=== PATIENT | female | born 1940 | race Caucasian/White ===

== ENCOUNTER 2017-10-27 15:52 | Inpatient (IN) | payer MEDICARE, MEDICAID ==
--- NOTE | 2017-10-27 16:46 | RADIOLOGY REPORT (SQ) ---
EXAM DESCRIPTION: CT HEAD WITHOUT COMPLETED DATE/TIME: 10/27/2017 4:38 pm REASON FOR STUDY: frequent falls, head injury COMPARISON: None. TECHNIQUE: Axial images acquired through the brain without intravenous contrast. Images reviewed wi th bone, brain and subdural windows. Images stored on PACS. All CT scanners at this facility use dose modulation, iterative reconstruction, and/or weight based d osing when appropriate to reduce radiation dose to as low as reasonably achievable (ALARA). [facility]: Dose Right [facility]: CareDose [facility]: Dose Right [facility]: Teradose 4D [facility]: Smart Matchpin RADIATION DOSE: CT Rad equipment meets quality standard of care and radiation dose reduction techniq ues were employed. CTDIvol: 64.6 mGy. DLP: 1034 mGy-cm.mGy. LIMITATIONS: None. FINDINGS: VENTRICLES: Prominent. CEREBRUM: No masses. No hemorrhage. No midline shift. Areas of low density in the white matter mos t likely due to chronic micro-vascular ischemic change. No evidence for acute infarction. CEREBELLUM: No masses. No hemorrhage. No alteration of density. No evidence for acute infarction. EXTRAAXIAL SPACES: Age-related involutional change. No fluid collections. No masses. ORBITS AND GLOBE: No intra- or extraconal masses. Normal contour of globe without masses. CALVARIUM: No fracture. PARANASAL SINUSES: No fluid or mucosal thickening. SOFT TISSUES: No mass or hematoma. OTHER: No other significant finding. IMPRESSION: CHRONIC CHANGES OF ATROPHY AND MICROVASCULAR ISCHEMIA. NO ACUTE PROCESS. EVIDENCE OF ACUTE STROKE: NO. TECHNICAL DOCUMENTATION: JOB ID: [id number] Quality ID # [id number]: Final reports with documentation of one or more dose reduction techniques (e.g., Au tomated exposure control, adjustment of the mA and/or kV according to patient size, use of iterative reconstruction technique) 2010 [employer]- All Rights Reserved
--- NOTE | 2017-10-27 16:51 | ER Document Report ---
ED Fall - General Chief Complaint: Blood Pressure Problem Stated Complaint: FALL,BLOOD PRESSURE ISSUES Time Seen by Provider: 10/27/17 16:02 Notes: The patient is a 76-year-old female, past medical history hypertension (not on any blood pressure medications for 15 years), presents with her son and granddaughter after they noticed she had some falls over the past 4 days. Patient said that she begins to feel slightly off balance when she is standing and will lay down. When at rest, she is not having any symptoms. Patient is also having mild left upper and lower extremity weakness. Patient has not seen a primary care physician for the past 15 years. Patient denies chest pain, shortness of breath, headache, blurry vision, focal weakness, numbness, tingling , difficulty swallowing, nausea, vomiting or abdominal pain. TRAVEL OUTSIDE OF THE [place] IN LAST 30 DAYS: No - Related data Allergies/Adverse Reactions: No Known Allergies Allergy (Unverified 10/27/17 16:58) Past Medical History - General Information source: Patient, Relative - Social History Smoking Status: Unknown if Ever Smoked Family History: Reviewed & Not Pertinent Review of Systems - Review of Systems Notes: REVIEW OF SYSTEMS: CONSTITUTIONAL: -fevers, -chills EENT: -eye pain, -difficulty swallowing, -nasal congestion CARDIOVASCULAR:-chest pain, -syncope. RESPIRATORY: -cough, -SOB GASTROINTESTINAL: -abdominal pain, - nausea, -vomiting, -diarrhea GENITOURINARY: -dysuria, -hematuria MUSCULOSKELETAL: -back pain, -neck pain SKIN: -rash or skin lesions. HEMATOLOGIC: -easy bruising or bleeding. LYMPHATIC: -swollen, enlarged glands. NEUROLOGICAL: -altered mental status or loss of consciousness, -headache, +off- balance feeling, +mild left-sided weakness PSYCHIATRIC: -anxiety, -depression. ALL OTHER SYSTEMS REVIEWED AND NEGATIVE. Physical Exam - Vital signs Vitals: Pulse Resp BP Pulse Ox 91 20 202/110 H 97 10/27/17 18:54 10/27/17 18:54 10/27/17 18:54 10/27/17 18:54 - Notes Notes: PHYSICAL EXAMINATION: GENERAL: Well-appearing, well-nourished and in no acute distress. HEAD: Atraumatic, normocephalic. EYES: Pupils equal round and reactive to light, extraocular movements intact, sclera anicteric, conjunctiva are normal. ENT: nares patent, oropharynx clear without exudates. Moist mucous membranes. NECK: Normal range of motion, supple without lymphadenopathy LUNGS: Breath sounds clear to auscultation bilaterally and equal. No wheezes rales or rhonchi. HEART: irregular rhythm ABDOMEN: Soft, nontender, normoactive bowel sounds. No guarding, no rebound. No masses appreciated. EXTREMITIES: Normal range of motion, no pitting or edema. No cyanosis. NEUROLOGICAL: Cranial nerves grossly intact. Normal speech. 4/5 strength in LUE and LLE. 5/5 strength in LUE and LLE. Normal sensation. No posterior cerebellar signs. Slow, unsteady gait. PSYCH: Normal mood, normal affect. SKIN: Warm, Dry, normal turgor, no rashes or lesions noted. Course - Re-evaluation Re-evalutation: Patient with several days of ataxia, mild left-sided weakness and frequent falls. Patient has not seen a doctor for 15 years. She was found to be hypertensive and in A. fib. She is not on any blood thinners. No history of A. fib that the patient and her family is aware of. Her NIHSS is 2 and her ABCD2 score is 4. Patient provided with aspirin. Spoke with Dr. Andersen and he has accepted patient to [facility] for further evaluation and treatment of her stroke. - Vital Signs Vital signs: Temp Pulse Resp BP Pulse Ox 91 20 202/110 H 97 10/27/17 18:54 10/27/17 18:54 10/27/17 18:54 10/27/17 18:54 - Laboratory Result Diagrams: 10/27/17 16:25 10/27/17 16:25 Laboratory results interpreted by me: 10/27/17 16:25 Sodium 147.3 H Chloride 110 H - Diagnostic Test Radiology reviewed: Image reviewed, Reports reviewed Radiology results interpreted by me: CT Head: chronic changes, NAD CXR: NAD MRI Head: 2 small foci of restricted diffusion in the white matter in the region of the right thalamus suspicious for sub-acute lacunar infarctions. EVIDENCE OF ACUTE STROKE: Yes RIGHT MCA - EKG Interpretation by Me Rate: Normal Rhythm: A.Fib Additional EKG results interpreted by me: No STEMI. Discharge - Discharge Clinical Impression: CVA (cerebral vascular accident) Qualifiers: CVA mechanism: unspecified Qualified Code(s): I63.9 - Cerebral infarction, unspecified Condition: Stable Disposition: ADMITTED INPATIENT Admitting Provider: [place] [facility] Unit Admitted: [facility]
[2017-10-27 16:53] LABS: ABSOLUTE BASOPHILS # (AUTO) 0.1 10^3/uL (0.0-0.2); ABSOLUTE EOSINOPHILS # (AUTO) 0.2 10^3/uL (0.0-0.6); ABSOLUTE LYMPHOCYTES (AUTO) 1.5 10^3/uL (0.5-4.7); ABSOLUTE MONOCYTES (AUTO) 0.6 10^3/uL (0.1-1.4); ABSOLUTE NEUT (AUTO) 6.7 10^3/uL (1.7-8.2); BASOPHILS % (AUTO) 0.8 % (0-2); HEMATOCRIT 41.6 % (36.0-47.0); HEMOGLOBIN 14.3 g/dL (12.0-15.5); LYMPHOCYTES % (AUTO) 16.1 % (13-45); MEAN CORPUSCULAR HEMOGLOBIN 31.1 pg (27.0-33.4); MEAN CORPUSCULAR HGB CONC 34.5 g/dL (32.0-36.0); MEAN CORPUSCULAR VOLUME 90 fl (80-97); MONOCYTES % (AUTO) 6.9 % (3-13); PLATELET COUNT 365 10^3/uL (150-450); RED BLOOD COUNT 4.61 10^6/uL (3.72-5.28); RED CELL DISTRIBUTION WIDTH 13.7 % (11.5-14.0); SEGMENTED NEUTROPHILS % (AUTO) 74.2 % (42-78); TOTAL CELLS COUNTED % (AUTO) 100 %
[2017-10-27 16:59] LABS: ALANINE AMINOTRANSFERASE 29 U/L (9-52); ALBUMIN 4.1 g/dL (3.5-5.0); ALKALINE PHOSPHATASE 108 U/L (38-126); ANION GAP 11 (5-19); ASPARTATE AMINO TRANSFERASE 19 U/L (14-36); BILIRUBIN,DIRECT 0.2 mg/dL (0.0-0.4); BILIRUBIN,TOTAL 0.4 mg/dL (0.2-1.3); BLOOD UREA NITROGEN 14 mg/dL (7-20); CALCIUM 9.9 mg/dL (8.4-10.2); CARBON DIOXIDE 26 mmol/L (22-30); CHLORIDE 110 mmol/L (98-107); CREATINE KINASE 35 U/L (30-135); GLUCOSE 103 mg/dL (75-110); POTASSIUM 4.2 mmol/L (3.6-5.0); SODIUM 147.3 mmol/L (137-145); TOTAL PROTEIN 6.9 g/dL (6.3-8.2)
--- NOTE | 2017-10-27 16:59 | RADIOLOGY REPORT (SQ) ---
EXAM DESCRIPTION: CHEST SINGLE VIEW COMPLETED DATE/TIME: 10/27/2017 4:45 pm REASON FOR STUDY: fall, assess for metal before MRI COMPARISON: None. EXAM PARAMETERS: NUMBER OF VIEWS: One view. TECHNIQUE: Single frontal radiographic view of the chest acquired. RADIATION DOSE: NA LIMITATIONS: None. FINDINGS: LUNGS AND PLEURA: No opacities, masses or pneumothorax. No pleural effusion. MEDIASTINUM AND HILAR STRUCTURES: No masses. Contour normal. HEART AND VASCULAR STRUCTURES: Heart normal in size. Normal vasculature. BONES: No acute findings. HARDWARE: None in the chest. OTHER: No other significant finding. IMPRESSION: NO ACUTE RADIOGRAPHIC FINDING IN THE CHEST. TECHNICAL DOCUMENTATION: JOB ID: [id number] [employer]- All Rights Reserved
--- NOTE | 2017-10-27 17:56 | RADIOLOGY REPORT (SQ) ---
EXAM DESCRIPTION: MRI HEAD WITHOUT COMPLETED DATE/TIME: 10/27/2017 5:33 pm REASON FOR STUDY: ataxia COMPARISON: Earlier head CT TECHNIQUE: Multiplanar imaging includes non-contrasted T1, T2, FLAIR, and diffusion with ADC map seq uences. Images stored on PACS. LIMITATIONS: None. FINDINGS: ANATOMY: No anomalies. Patent vascular flow voids. Pituitary fossa age-appropriate. CSF SPACES: Atrophy induced prominence of ventricles and CSF spaces. CEREBRUM: High signal intensity lesions scattered throughout the white matter on FLAIR imaging with d istribution suggesting micro-vascular ischemic changes. No evidence of hemorrhage, mass, or extraaxi al fluid collection. POSTERIOR FOSSA: No signal alteration. No hemorrhage. No edema, masses or mass effect. Internal estevan tory canals, cerebello-pontine angles, mastoids normal. DIFFUSION IMAGIN small foci of restricted diffusion in the white matter in the region of the righ t thalamus suspicious for sub-acute lacunar infarctions. ORBITS: No masses. Globes normal. PARANASAL SINUSES: No fluid levels. Small left maxillary mucous retention cyst. OTHER: No other significant finding. IMPRESSION: 2 small foci of restricted diffusion in the white matter in the region of the right thal amus suspicious for sub-acute lacunar infarctions. EVIDENCE OF ACUTE STROKE: Yes RIGHT MCA TECHNICAL DOCUMENTATION: JOB ID: [id number] [place]-72 2010 [employer]- All Rights Reserved
[2017-10-27] MEDS ORDERED: ASPIRIN 81 MG TABLET, CHEWABLE PO ONE (18:15)
--- NOTE | 2017-10-27 18:30 | ER Document Report ---
ED NIH Stroke Scale - NIH Stroke Scale When completed:: Before Alteplase *: 1. NIH scale should be completed with appropriate accompanying assessment tools. *: 2. The NIH should reflect what the patient is capable of doing and should not be coached by the clinician. 1a. Level of Consciousness: 0=Alert;keenly responsive -: 1=Drowsy -: 2=Obtunded -: 3=Coma/unresponsive or reflex to noxious stimuli. 1a. Responses: 0 1b. Orientation Questions: a. What month is it? -: b. How old are you? -: 0=Answers both questions correctly. -: 1=Answers one question correctly or patient is intubated or has orotracheal trauma. -: 2=Answers neither question correctly. 1b. Responses: 0 1c. Response to commands: a. Open and close eyes? -: b. 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 -: Credit is given despite weakness. Demonstration of task is permitted. Substitute command if hands cannot be used. -: 0=Performs both tasks correctly -: 1=Performs one task correctly -: 2=Performs neither task correctly 1c. Responses: 0 2. Gaze: Establish eye contact and instruct patient to "Follow my finger" -: 0=Normal -: 1=Partial gaze palsy. Gaze is abnormal in one or both eyes, but where forced deviation or total gaze paresis is not present. -: 2=Forced deviation or total gaze paresis. 2. Responses: 0 3. Visual Williamson: Sees fingers in all four quadrants. -: 0=No visual loss. -: 1=Partial hemianopsia. -: 2=Complete hemianopsia. -: 3=Bilateral hemianopsia (including Cortical blindness) 3. Responses: 0 4. Facial Movement: Instruct patient to: -: a. Show me your teeth -: b. Raise your eyebrows -: c. Close your eyes -: d. Smile -: 0=Normal symmetrical movement -: 1=Minor paralysis (flattened nasolabial fold, asymmetry on smiling). -: 2=Partial paralysis (total or near total paralysis of lower face). -: 3=Complete paralysis of upper and lower face 4. Responses: 0 5. Motor functions (left arm): Alternate sides and extend each arm with palms down (90 degrees if sitting or 45 degrees for supine). -: 0=No drift;limb holds for full 10 seconds. -: 1=Drift; limb holds but drifts down before full 10 seconds, but does not hit bed. -: 2=Some effort against gravity; limb cannot get to or maintain position. -: 3=No effort against gravity; limb falls. -: 4=No movement. -: UN=Amputation, joint fusion, explain in comments. 5. Responses (left arm): 1 5. Motor Functions (right arm): Alternate sides and extend each arm with palms down (90 degrees if sitting or 45 degrees for supine). -: 0=No drift;limb holds for full 10 seconds. -: 1=Drift; limb holds but drifts down before full 10 seconds, but does not hit bed. -: 2=Some effort against gravity; limb cannot get to or maintain position. -: 3=No effort against gravity; limb falls. -: 4=No movement. -: UN=Amputation, joint fusion, explain in comments. 5. Responses (right arm): 0 6. Motor Functions (left leg): With patient lying supine, alternate sides and extend each leg (30 degrees always while supine). -: 0=No drift, leg holds position for full 5 seconds -: 1=Drift; leg falls before full 5 seconds but does not hit bed. -: 2=Some effort against gravity, leg falls to bed but some effort against gravity. -: 3=No effort against gravity, leg falls to bed immediately. -: 4=No movement. -: UN=Amputation, joint fusion; explain in comments. 6. Responses (left leg): 1 6. Motor Functions (right leg): With patient lying supine, alternate sides and extend each leg (30 degrees always while supine). -: 0=No drift, leg holds position for full 5 seconds -: 1=Drift; leg falls before full 5 seconds but does not hit bed. -: 2=Some effort against gravity, leg falls to bed but some effort against gravity. -: 3=No effort against gravity, leg falls to bed immediately. -: 4=No movement. -: UN=Amputation, joint fusion; explain in comments. 6. Responses (right leg): 0 7. Limb Ataxia: With eyes open instruct patient to: -: a. "Touch your finger to your nose". -: b. "Touch your heel to your boo" -: 0=Absent -: 1=Present in one limb. -: 2=Present in two limbs. -: UN=Amputation or joint fusion; explain in comments. 7. Responses: 0 8. Sensory: Test sensation using pinprick or noxious stimuli. Test as many body parts as possible. -: 0=Normal;no sensory loss -: 1=Mile to moderate sensory loss (patient feels pin prick but is less sharp on affected side). -: 2=Severe or total sensory loss. 8. Responses: 0 9. Best Language: Instruct patient to: -: a. "Describe what you see in this picture." -: b. "Name the items in this picture." -: c. "Read these sentences." -: 0=No aphasia, normal -: 1=Mild to moderate aphasia. -: 2=Severe aphasia -: 3=Mute, global aphasia, no usable speech or auditory comprehension. 9. Responses: 0 10. Articulation, Dysarthia: Instruct patient to: -: "Read these words" or "Repeat these words" -: 0=Normal -: 1=Mild to moderate; patient may slur some words but can be understood without difficulty. -: 2=Severe; patients speech so slurred as to be unintelligible in the absence of dysphasia. -: UN=Intubated or other physical barrier, explain in comments. 10. Responses: 0 11. Extinction or inattention: 0=No abnormality -: 1= Visual, tactile, auditory, spatial, or personal inattention or extinction to bilateral simulation in one or the sensory modalities. -: 2=Profound berenice-inattention or berenice-inattention to more than one modality; does not recognize own hand. 11. Responses: 0 Total Score: 2
[2017-10-27] MEDS ORDERED: METOPROLOL TARTRATE 25 MG TABLET PO ONE ×2 (18:34→20:00)
[2017-10-27 18:39] LABS: INTERNATIONAL RATION (INR) 0.89; PARTIAL THROMBOPLASTIN TIME 30.3 SEC (23.5-35.8); PROTHROMBIN TIME 12.7 SEC (11.4-15.4)
[2017-10-27] MEDS ORDERED: ACETAMINOPHEN 325 MG TABLET PO PRN (18:49)
[2017-10-27] MEDS ORDERED: ONDANSETRON HCL INJ/PF 4 MG/2 ML SDV IV PRN (18:49)
[2017-10-27] MEDS ORDERED: DOCUSATE SODIUM 100 MG CAPSULE PO PRN (18:54)
[2017-10-27] MEDS ORDERED: METOPROLOL TARTRATE PF/INJ 5 MG/5 ML SDV IV PRN (18:57)
[2017-10-27] MEDS ORDERED: ENOXAPARIN SODIUM INJ 40 MG/0.4 ML DISP.SYRIN SUBCUT ONE (20:30)
[2017-10-27] MEDS ORDERED: INFLUENZA ADLT QUAD (36MOS+) 2017-18 VAC 0.5 ML SYR IM PRN (21:39)
[2017-10-27] MEDS: ATORVASTATIN CALCIUM 80 MG TABLET PO SCH (21:53)
[2017-10-28] MEDS: METOPROLOL TARTRATE 25 MG TABLET PO SCH ×2 (05:05→17:58)
--- NOTE | 2017-10-28 07:54 | EKG REPORT ---
SEVERITY:- ABNORMAL ECG - ATRIAL FIBRILLATION, V-RATE 71-125 PROBABLE LVH WITH SECONDARY REPOL ABNRM ST DEPRESSION, CONSIDER ISCHEMIA, ANT-LAT LDS : Confirmed by: Delonte Morin MD 28-Oct-2017 07:52:48
[2017-10-28 07:57] LABS: CHOLESTEROL 210.19 mg/dL (0-200); TRIGLYCERIDES 147 mg/dL (<150)
[2017-10-28 08:08] LABS: DIRECT LDL 121 mg/dL (<100)
[2017-10-28 08:14] LABS: FREE T4 (FREE THYROXINE) 1.46 ng/dL (0.78-2.19)
[2017-10-28 08:28] LABS: THYROID STIMULATING HORMONE 1.68 uIU/mL (0.47-4.68)
[2017-10-28] MEDS ORDERED: ENOXAPARIN SODIUM INJ 40 MG/0.4 ML DISP.SYRIN SUBCUT SCH (10:00)
[2017-10-28] MEDS ORDERED: ASPIRIN 325 MG TABLET, ENT COATED PO SCH (10:00)
--- NOTE | 2017-10-28 12:40 | PDOC H&P ---
History of Present Illness Admission Date/PCP: 10/27/17 18:50 Patient seen and examined from [id number] on 10/27/2017 Patient complains of: Dizziness and falls History of Present Illness: BLANCA GIL is a 76 year old female presents from home with a couple week history of progressive dizziness resulting in several falls over the course of the last 3 days. Patient has always refused to come in for evaluation after a fall in spite until today at the insistence of her family. She has a history of hypertension but quit going to the doctor approximately 15 years ago and took herself off all medications at that time. She reports the dizziness occurring off and on for the last couple of weeks but does seem to be getting worse over the last several days. Is not associated with any behaviors or activities and the she cannot think of any alleviating or exacerbating factors, it seems rather random sometimes occurring upon standing and other times while walking. She denies unilateral weakness, numbness or tingling, headache, vision changes, hearing changes, speech difficulties or swallowing problems, cough with congestion, stiff neck, fever or chills. She has never had anything like this before. On arrival in the emergency department she was noted to be quite hypertensive with a systolic pressure greater than 235 and diastolic pressure greater than 115 in an irregular rhythm consistent with atrial fibrillation and a heart rate from 100-116 sustained with no prior history of cardiac arrhythmia. MRI was performed and shows deep brain lesion consistent with acute ischemic event and we were asked to admit for further evaluation and management. Past Medical History Cardiac Medical History: Reports: Hyperlipidema, Hypertension Neurological Medical History: Reports: None Endocrine Medical History: Reports: None Psychiatric Medical History: Denies: Depression Past Surgical History Past Surgical History: Reports: Hysterectomy Social History Information Source: Patient Smoking Status: Former Smoker Cigarettes Packs Per Day: 1 Number of Years Smokin Last Time Smoked: 1991 Frequency of Alcohol Use: None Hx Recreational Drug Use: No Drugs: None Hx Prescription Drug Abuse: No - Advance Directive Resuscitation Status: Full Code Family History Family History: Reviewed & Not Pertinent. denies: CVA Parental Family History Reviewed: Yes Children Family History Reviewed: Yes Sibling(s) Family History Reviewed.: Yes Medication/Allergy Home Medications: No Home Medications 10/27/17 Allergies/Adverse Reactions: No Known Allergies Allergy (Unverified 10/27/17 16:58) Review of Systems All systems: reviewed and no additional remarkable complaints except as stated - All systems reviewed, see above, remaining systems negative. Physical Exam Vital Signs: Temp Pulse Resp BP Pulse Ox 98.3 F 75 20 154/78 H 94 10/28/17 08:12 10/28/17 08:12 10/28/17 08:12 10/28/17 08:12 10/28/17 08:12 Intake & Output 10/27/17 10/28/17 10/29/17 06:59 06:59 06:59 Intake Total 155 Balance 155 Weight 79.3 kg General: Well-developed, well-nourished, mildly obese elderly female in no acute distress alert and oriented to person place time. HEENT: Extraocular muscles intact, pupils equal round reactive to light and accommodation, oral mucosa moist and free of lesions, neck muscles are supple there is no adenopathy about the head and neck. Cardiac: Irregularly irregular with sustained rate greater than 100 but no obvious murmur rub or gallop; no JVD, no carotid bruit. Respiratory: Clear to auscultation bilaterally without accessory muscle use. Abdomen: Soft, nontender, nondistended with good bowel sounds throughout; no organomegaly and no abdominal bruit. Extremities: Strength is 5 out of 5 in the major muscle groups. She moves all 4 extremities and follows commands. No edema. Neuro: Cerebellar testing is intact, she is able to cross midline without difficulty taking her right index finger to her left ear and vice versa; there is no dysarthria; tongue protrusion is midline, no facial asymmetry, posterior oropharynx elevates symmetrically with phonation. Sensation intact globally. No focal weakness on confrontational testing. No nystagmus. Skin: Warm and dry. Results Laboratory Results: 10/28/17 10/28/17 07:08 07:08 Triglycerides 147 Cholesterol 210.19 H LDL Cholesterol Direct 121 H VLDL Cholesterol 29.0 HDL Cholesterol 45 Vitamin B12 259.0 TSH 1.68 Free T4 1.46 10/28/17 10/28/17 00:54 07:08 Troponin I 0.022 0.017 EKG Comments: EKG shows atrial fibrillation with nonspecific ST depression in the inferior and lateral leads likely repolarization abnormality due to rapid ventricular response Impressions: Head CT 10/27/17 16:14 IMPRESSION: CHRONIC CHANGES OF ATROPHY AND MICROVASCULAR ISCHEMIA. NO ACUTE PROCESS. EVIDENCE OF ACUTE STROKE: NO. Chest X-Ray 10/27/17 16:30 IMPRESSION: NO ACUTE RADIOGRAPHIC FINDING IN THE CHEST. Head MRI 10/27/17 17:33 IMPRESSION: 2 small foci of restricted diffusion in the white matter in the region of the right thalamus suspicious for sub-acute lacunar infarctions. EVIDENCE OF ACUTE STROKE: Yes RIGHT MCA Status: Image reviewed by me - Agree with radiology. 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 Admit the patient to a monitored bed for further evaluation including echocardiogram, serial cardiac enzymes, metabolic testing including lipids, hemoglobin A1c, electrolyte abnormalities, thyroid studies and B12. She will need carotid Doppler studies including the vertebrobasilar system. Allow permissive hypertension started on low-dose beta-bennett for rate control hoping to avoid a greater than 25% drop in systolic and diastolic pressures. MENDS through the night. Hold on anticoagulation tonight reevaluate in the morning given the deep brain lesion and unclear timeline. Symptoms started well outside the window for therapeutic thrombolytics. (2) Accelerated hypertension Is this a current diagnosis for this admission?: Yes Plan: As above. Likely result of long-standing untreated hypertension. (3) Noncompliance Is this a current diagnosis for this admission?: Yes Plan: She was counseled extensively regarding medication compliance. (4) Obesity (BMI 30.0-34.9) Is this a current diagnosis for this admission?: Yes Plan: Another additional risk factor for stroke. Counseled regarding diet and exercise and weight loss. (5) New onset atrial fibrillation Is this a current diagnosis for this admission?: Yes Plan: Rate and rhythm control with beta-bennett. Follow-up echocardiogram in the morning and serial cardiac enzymes. We will likely start anticoagulation in the morning. - Time Time Spent: 50 to 70 Minutes Medications reviewed and adjusted accordingly: Yes - Inpatient Certification Based on my medical assessment, after consideration of the patient's comorbidities, presenting symptoms, or acuity I expect that the services needed warrant INPATIENT care.: Yes I certify that my determination is in accordance with my understanding of Medicare's requirements for reasonable and necessary INPATIENT services [42 CFR 412.3e].: Yes Medical Necessity: Significant Comorbidiites Make Outpatient Treatment Too Risky , Need For Continuous Telemetry Monitoring, Need for Neurological Checks, Risk of Complication if Not Cared For in Hospital
--- NOTE | 2017-10-28 12:55 | RADIOLOGY REPORT (SQ) ---
EXAM DESCRIPTION: CAROTID DOPPLER COMPLETED DATE/TIME: 10/28/2017 11:45 am REASON FOR STUDY: EMBOLIC CVA COMPARISON: CT brain 10/27/2017 MRI brain 10/27/2017 TECHNIQUE: Grayscale ultrasound, Doppler velocity and spectra, and color Doppler images acquired of the extra-cranial carotid and vertebral arteries. Images stored on PACS. LIMITATIONS: None. FINDINGS: RIGHT CAROTID CCA Velocities: Within normal limits. ICA Velocities Peak systolic 0.94 m/s. End diastolic 0.21 m/s. Proximal ICA/CCA peak systolic ratio 2.1. Spectra normal. No significant plaque. Tortuous right cervical ICA LEFT CAROTID CCA Velocities: Within normal limits. ICA Velocities Peak systolic 0.91 m/s. End diastolic 0.23 m/s. Proximal ICA/CCA peak systolic ratio 1.3. Spectra normal. No significant plaque. Tortuous left cervical ICA VERTEBRAL ARTERIES: Antegrade flow. Normal waveforms. SUBCLAVIAN ARTERIES: Not evaluated OTHER: No other significant finding. IMPRESSION: NO HEMODYNAMICALLY SIGNIFICANT STENOSIS. COMMENT: Quality ID #[id number]: Velocity criteria are extrapolated from the diameter data as defined by t he Society of Radiologists in Ultrasound Consensus Conference. Radiology 2003: 229; 340-346. TECHNICAL DOCUMENTATION: JOB ID: [id number] [employer]- All Rights Reserved
--- NOTE | 2017-10-28 13:13 | XCELERA REPORT ---
[address] [address] Transthoracic Echocardiogram Report Name: BLANCA GIL Age: 76 yrs Gender: Female : 1940 Patient Status: Inpatient Patient Location: [address] [place] [address] Study Date: 10/28/2017 10:17 AM Height: 60 in Weight: 174 lb BSA: 1.8 m2 Procedure: A two-dimensional transthoracic echocardiogram with color flow and Doppler was performed. Study Quality: Fair. Reason For Study: CVA History: CVA. Ordering Physician: DEYSI JACKSON Performed By: Kia Woodruff Interpretation Summary There is no obvious cardiac source of embolus noted on this transthoracic echocardiogram. Follow-up with a JULIEN is suggested if cardiac source is still suspected. The left ventricle is normal in size. There is normal left ventricular wall thickness. LV EF is > than 65% Left ventricular systolic function is normal. Doppler measurements suggest normal left ventricular diastolic function The left ventricular wall motion is normal. There is no thrombus. There is no ventricular septal defect visualized. The right ventricle is normal in size and function. The right atrium is normal. The left atrial size is normal. The interatrial septum is intact with no evidence for an atrial septal defect. There is no evidence of mitral valve prolapse. There is no vegetation seen on the mitral valve. There is no mitral valve stenosis. There is a mild amount of mitral regurgitation There is no aortic valve stenosis There is no LVOT obstruction. No aortic regurgitation is present. There is no tricuspid stenosis. There is a mild amount of tricuspid regurgitation There is mild pulmonary hypertension by echo RVSP is 34 to 39 mm of Hg , with RA mean of 5 to 10. There is no pulmonic valvular stenosis. There is a mild amount of pulmonic regurgitation The inferior vena cava appeared normal and decreased > 50% with respiration (RAP 5-10 mmHg) There is no pericardial effusion. There is no obvious cardiac source of embolus noted on this transthoracic echocardiogram. Follow-up with a JULIEN is suggested if cardiac source is still suspected MMode/2D Measurements & Calculations RVDd: 2.3 cm LVIDd: 4.5 cm FS: 40.0 % Ao root diam: 3.0 cm IVSd: 1.1 cm LVIDs: 2.7 cm EDV(Teich): 93.3 ml LVPWd: 1.00 cm ESV(Teich): 27.3 ml Ao root area: 7.0 cm2 EF(Teich): 70.8 % Doppler Measurements & Calculations MV E max mari: MV dec slope: Ao V2 max: LV V1 max P.4 cm/sec 114.1 cm/sec 5.0 mmHg MV A max mari: 671.3 cm/sec2 Ao max PG: LV V1 max: 35.2 cm/sec MV dec time: 5.2 mmHg 111.6 cm/sec MV E/A: 3.5 0.18 sec PA V2 max: PI end-d mari: TR max mari: 91.5 cm/sec 122.5 cm/sec 263.8 cm/sec PA max P.3 mmHg TR max P.7 mmHg Left Ventricle The left ventricle is normal in size. There is normal left ventricular wall thickness. LV EF is > than 65%. Left ventricular systolic function is normal. Doppler measurements suggest normal left ventricular diastolic function. The left ventricular wall motion is normal. There is no thrombus. There is no ventricular septal defect visualized. Right Ventricle The right ventricle is normal in size and function. Atria The right atrium is normal. The left atrial size is normal. The interatrial septum is intact with no evidence for an atrial septal defect. Mitral Valve There is no evidence of mitral valve prolapse. There is no vegetation seen on the mitral valve. There is no mitral valve stenosis. There is a mild amount of mitral regurgitation. Aortic Valve There is no aortic valvular vegetation. There is no aortic valve stenosis. There is no LVOT obstruction. No aortic regurgitation is present. Tricuspid Valve There is no tricuspid stenosis. There is a mild amount of tricuspid regurgitation. There is mild pulmonary hypertension by echo. RVSP is 34 to 39 mm of Hg , with RA mean of 5 to 10. Pulmonic Valve There is no pulmonic valvular stenosis. There is a mild amount of pulmonic regurgitation. Great Vessels The aortic root is normal size. The inferior vena cava appeared normal and decreased > 50% with respiration (RAP 5-10 mmHg). Effusions There is no pericardial effusion. : DEYSI JACKSON > Elke Cote
--- NOTE | 2017-10-28 15:23 | PDOC PROGRESS REPORT ---
Subjective Progress Note for:: 10/28/17 Subjective:: History of Present Illness: BLANCA GIL is a 76 year old female presents from home with a couple week history of progressive dizziness resulting in several falls over the course of the last 3 days. Patient has always refused to come in for evaluation after a fall in spite until today at the insistence of her family. She has a history of hypertension but quit going to the doctor approximately 15 years ago and took herself off all medications at that time. She reports the dizziness occurring off and on for the last couple of weeks but does seem to be getting worse over the last several days. Is not associated with any behaviors or activities and the she cannot think of any alleviating or exacerbating factors, it seems rather random sometimes occurring upon standing and other times while walking. She denies unilateral weakness, numbness or tingling, headache, vision changes, hearing changes, speech difficulties or swallowing problems, cough with congestion, stiff neck, fever or chills. She has never had anything like this before. On arrival in the emergency department she was noted to be quite hypertensive with a systolic pressure greater than 235 and diastolic pressure greater than 115 in an irregular rhythm consistent with atrial fibrillation and a heart rate from 100-116 sustained with no prior history of cardiac arrhythmia. MRI was performed and shows deep brain lesion consistent with acute ischemic event and we were asked to admit for further evaluation and management. She has had some improvement in her symptoms though she still gets a little unsteady on her feet with ambulation she is working with physical therapy who notes a slight list to the left when walking with a walker she is otherwise min assist. Workup so far has been unrevealing, laboratory workup is all within normal limits including a B12, electrolytes, thyroid studies. Her cholesterol is not well controlled with a total cholesterol of 211 and an LDL of 121. She did have measurable troponins reaching a peak of 0.022 likely secondary to the stroke itself she is chest pain-free. Echocardiogram per Dr. Cote shows well-preserved EF greater than 65% with normal diastolic function, no thrombus, no ASD/VSD evident, no valvular disease. Carotid Dopplers are also clean including the antegrade flow through the vertebral arteries. She denies chest pain, palpitations, fever, chills, cough, dyspnea, headache, numbness tingling, difficulty speaking, difficulty swallowing unilateral weakness. ROS: All systems reviewed, see above, remaining systems negative. Reason For Visit: CVA Physical Exam Vital Signs: Temp Pulse Resp BP Pulse Ox 98.3 F 78 16 155/79 H 95 10/28/17 12:11 10/28/17 12:11 10/28/17 12:11 10/28/17 12:11 10/28/17 12:11 Intake & Output 10/27/17 10/28/17 10/29/17 06:59 06:59 06:59 Intake Total 155 237 Balance 155 237 Weight 79.3 kg General: Well-developed, well-nourished, mildly obese elderly female in no acute distress alert and oriented to person place time. HEENT: Extraocular muscles intact, pupils equal round reactive to light and accommodation, oral mucosa moist and free of lesions, neck muscles are supple there is no adenopathy about the head and neck. No nystagmus Cardiac: Irregularly irregular with sustained rate greater than 100 but no obvious murmur rub or gallop; no JVD, no carotid bruit. Respiratory: Clear to auscultation bilaterally without accessory muscle use. Abdomen: Soft, nontender, nondistended with good bowel sounds throughout; no organomegaly and no abdominal bruit. Extremities: Strength is 5 out of 5 in the major muscle groups. She moves all 4 extremities and follows commands. No edema. Neuro: there is no dysarthria; tongue protrusion is midline, no facial asymmetry. Sensation intact globally. No focal weakness on confrontational testing. Skin: Warm and dry. Results Laboratory Results: 10/28/17 10/28/17 07:08 07:08 Triglycerides 147 Cholesterol 210.19 H LDL Cholesterol Direct 121 H VLDL Cholesterol 29.0 HDL Cholesterol 45 Vitamin B12 259.0 TSH 1.68 Free T4 1.46 10/28/17 10/28/17 00:54 07:08 Troponin I 0.022 0.017 Impressions: Carotid Doppler Study 10/28/17 00:00 IMPRESSION: NO HEMODYNAMICALLY SIGNIFICANT STENOSIS. Status: Imported from PACS Assessment & Plan - Diagnosis (1) Acute right arterial ischemic stroke, MCA (middle cerebral artery) Is this a current diagnosis for this admission?: Yes Plan: Affecting right thalamus causing ataxia. Improved but not back to baseline. Continue PT and OT. Start anticoagulation. (2) Accelerated hypertension Is this a current diagnosis for this admission?: Yes Plan: Likely contribute factor to her stroke. Improved. Continue beta-bennett and titrate to effect. (3) New onset atrial fibrillation Is this a current diagnosis for this admission?: Yes Plan: Rate controlled with beta-bennett. start anticoagulation in the morning due to a chads 2 score of 2. Risks and benefits of anticoagulation were discussed with patient at bedside, she expressed no questions and willingness to accept the bleeding risk associated with this medication in an effort to avoid debilitating stroke. I suggested the need for further ischemic stratification with stress testing however she is not willing to perform at this time. Will refer to cardiology at discharge for outpatient evaluation. She is not showing any clinical signs or symptoms of ischemic heart disease. 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 (5) Obesity (BMI 30.0-34.9) Is this a current diagnosis for this admission?: Yes - Time Time Spent with patient: 35 or more minutes Anticipated discharge: Home with Homehealth Within: within 24 hours
[2017-10-28] MEDS ORDERED: METOPROLOL TARTRATE PF/INJ 5 MG/5 ML SDV IV PRN (15:30)
[2017-10-28] MEDS ORDERED: ONDANSETRON HCL INJ/PF 4 MG/2 ML SDV IV PRN (15:30)
[2017-10-28] MEDS: APIXABAN 5 MG TABLET PO SCH (17:58)
--- NOTE | 2017-10-28 18:00 | EKG REPORT ---
SEVERITY:- ABNORMAL ECG - ATRIAL FIBRILLATION PROBABLE LVH WITH SECONDARY REPOL ABNRM : Confirmed by: Delonte Morin MD 28-Oct-2017 17:59:24
[2017-10-28] MEDS: ATORVASTATIN CALCIUM 80 MG TABLET PO SCH (23:25)
[2017-10-29] MEDS: METOPROLOL TARTRATE 25 MG TABLET PO SCH ×2 (06:14→17:59)
[2017-10-29 09:58] LABS: ABSOLUTE BASOPHILS # (AUTO) 0.1 10^3/uL (0.0-0.2); ABSOLUTE EOSINOPHILS # (AUTO) 0.5 10^3/uL (0.0-0.6); ABSOLUTE LYMPHOCYTES (AUTO) 1.7 10^3/uL (0.5-4.7); ABSOLUTE MONOCYTES (AUTO) 0.6 10^3/uL (0.1-1.4); ABSOLUTE NEUT (AUTO) 5.3 10^3/uL (1.7-8.2); BASOPHILS % (AUTO) 0.8 % (0-2); EOSINOPHILS % (AUTO) 5.6 % (0-6); HEMATOCRIT 39.4 % (36.0-47.0); HEMOGLOBIN 13.4 g/dL (12.0-15.5); LYMPHOCYTES % (AUTO) 20.5 % (13-45); MEAN CORPUSCULAR HGB CONC 34.1 g/dL (32.0-36.0); MEAN CORPUSCULAR VOLUME 91 fl (80-97); MONOCYTES % (AUTO) 7.1 % (3-13); PLATELET COUNT 365 10^3/uL (150-450); RED BLOOD COUNT 4.34 10^6/uL (3.72-5.28); RED CELL DISTRIBUTION WIDTH 13.7 % (11.5-14.0); TOTAL CELLS COUNTED % (AUTO) 100 %
[2017-10-29] MEDS ORDERED: ASPIRIN 325 MG TABLET, ENT COATED PO SCH (10:00)
[2017-10-29 10:29] LABS: ANION GAP 12 (5-19); BLOOD UREA NITROGEN 20 mg/dL (7-20); CALCIUM 9.5 mg/dL (8.4-10.2); CARBON DIOXIDE 27 mmol/L (22-30); CHLORIDE 105 mmol/L (98-107); GLUCOSE 117 mg/dL (75-110); SODIUM 143.5 mmol/L (137-145)
--- NOTE | 2017-10-29 10:40 | RADIOLOGY REPORT (SQ) ---
EXAM DESCRIPTION: CT HEAD WITHOUT COMPLETED DATE/TIME: 10/29/2017 10:25 am REASON FOR STUDY: acute neuro change; recent CVA COMPARISON: 10/27/2017. TECHNIQUE: Axial images acquired through the brain without intravenous contrast. Images reviewed wi th bone, brain and subdural windows. Images stored on PACS. All CT scanners at this facility use dose modulation, iterative reconstruction, and/or weight based d osing when appropriate to reduce radiation dose to as low as reasonably achievable (ALARA). [facility]: Dose Right [facility]: CareDose [facility]: Dose Right [facility]: Teradose 4D [facility]: BioRelix RADIATION DOSE: CT Rad equipment meets quality standard of care and radiation dose reduction techniq ues were employed. CTDIvol: 49.0 mGy. DLP: 881 mGy-cm.mGy. LIMITATIONS: None. FINDINGS: VENTRICLES: Prominent. CEREBRUM: No masses. No hemorrhage. No midline shift. Areas of low density in the white matter mos t likely due to chronic micro-vascular ischemic change. Old lacunar infarcts in the deep white matte r. No evidence for acute infarction. CEREBELLUM: No masses. No hemorrhage. No alteration of density. No evidence for acute infarction. EXTRAAXIAL SPACES: Age-related involutional change. No fluid collections. No masses. ORBITS AND GLOBE: No intra- or extraconal masses. Normal contour of globe without masses. CALVARIUM: No fracture. PARANASAL SINUSES: No fluid or mucosal thickening. SOFT TISSUES: No mass or hematoma. OTHER: No other significant finding. IMPRESSION: CHRONIC CHANGES OF ATROPHY AND MICROVASCULAR ISCHEMIA. OLD LACUNAR INFARCTS. NO ACUTE PROCESS. EVIDENCE OF ACUTE STROKE: NO. TECHNICAL DOCUMENTATION: JOB ID: [id number] Quality ID # [id number]: Final reports with documentation of one or more dose reduction techniques (e.g., Au tomated exposure control, adjustment of the mA and/or kV according to patient size, use of iterative reconstruction technique) 2010 [employer]- All Rights Reserved
[2017-10-29] MEDS: APIXABAN 5 MG TABLET PO SCH ×2 (11:00→17:54)
--- NOTE | 2017-10-29 11:31 | PDOC PROGRESS REPORT ---
Subjective Progress Note for:: 10/29/17 Subjective:: History of Present Illness: BLANCA GIL is a 76 year old female presents from home with a couple week history of progressive dizziness resulting in several falls over the course of the last 3 days. Patient has always refused to come in for evaluation after a fall in spite until today at the insistence of her family. She has a history of hypertension but quit going to the doctor approximately 15 years ago and took herself off all medications at that time. She reports the dizziness occurring off and on for the last couple of weeks but does seem to be getting worse over the last several days. Is not associated with any behaviors or activities and the she cannot think of any alleviating or exacerbating factors, it seems rather random sometimes occurring upon standing and other times while walking. She denies unilateral weakness, numbness or tingling, headache, vision changes, hearing changes, speech difficulties or swallowing problems, cough with congestion, stiff neck, fever or chills. She has never had anything like this before. On arrival in the emergency department she was noted to be quite hypertensive with a systolic pressure greater than 235 and diastolic pressure greater than 115 in an irregular rhythm consistent with atrial fibrillation and a heart rate from 100-116 sustained with no prior history of cardiac arrhythmia. MRI was performed and shows deep brain lesion consistent with acute ischemic event and we were asked to admit for further evaluation and management. She initially showed improvement in her symptoms though she still gets a little unsteady on her feet with ambulation she is working with physical therapy who notes a slight list to the left when walking with a walker she is otherwise min assist. Workup so far has been unrevealing, laboratory workup is all within normal limits including a B12, electrolytes, thyroid studies. Her cholesterol is not well controlled with a total cholesterol of 211 and an LDL of 121. She did have measurable troponins reaching a peak of 0.022 likely secondary to the stroke itself she is chest pain-free. Echocardiogram per Dr. Cote shows well-preserved EF greater than 65% with normal diastolic function, no thrombus, no ASD/VSD evident, no valvular disease. Carotid Dopplers are also clean including the antegrade flow through the vertebral arteries. She reports she had a very difficult night with development of confusion, she reportedly would not stay in bed and stripped all of her clothes off was walking around in the room naked and could not be redirected. He was very disoriented and agitated and restless. Ultimately they were able to get her back into bed and she did finally fall asleep. This morning she has no recollection of those events. She is, however more confused this morning than before she has no recollection of the events that brought her to the hospital and while she recognizes my face he is not sure who I am a what I do. She denies chest pain, palpitations, fever, chills, cough, dyspnea, headache, numbness tingling, difficulty speaking, difficulty swallowing unilateral weakness. ROS: All systems reviewed, see above, remaining systems negative. Reason For Visit: CVA Physical Exam Vital Signs: Temp Pulse Resp BP Pulse Ox 98.0 F 64 20 141/83 H 95 10/29/17 07:22 10/29/17 07:22 10/29/17 07:22 10/29/17 07:22 10/29/17 07:22 Intake & Output 10/28/17 10/29/17 10/30/17 06:59 06:59 06:59 Intake Total 155 902 Output Total 0 Balance 155 902 Weight 79.3 kg 69.1 kg General: Well-developed, well-nourished, mildly obese elderly female in no acute distress alert and oriented to person place but not time or situation. HEENT: Extraocular muscles intact, pupils equal round reactive to light and accommodation, oral mucosa moist and free of lesions, neck muscles are supple there is no adenopathy about the head and neck. No nystagmus Cardiac: Irregularly irregular with sustained rate less than 100 and no obvious murmur rub or gallop; no JVD, no carotid bruit. Respiratory: Clear to auscultation bilaterally without accessory muscle use. Abdomen: Soft, nontender, nondistended with good bowel sounds throughout; no organomegaly and no abdominal bruit. Extremities: Strength is 5 out of 5 in the major muscle groups. She moves all 4 extremities and follows commands. No edema. Neuro: there is no dysarthria; tongue protrusion is midline, no facial asymmetry. Sensation intact globally. No focal weakness on confrontational testing. She definitely lists to the left even while sitting she can barely hold herself upright but she denies dizziness Skin: Warm and dry. Results Laboratory Results: 10/29/17 09:43 10/29/17 09:43 10/29/17 10/29/17 10/29/17 09:43 09:43 09:43 WBC 8.0 RBC 4.34 Hgb 13.4 Hct 39.4 MCV 91 MCH 31.0 MCHC 34.1 RDW 13.7 Plt Count 365 Seg Neutrophils % 66.0 Lymphocytes % 20.5 Monocytes % 7.1 Eosinophils % 5.6 Basophils % 0.8 Absolute Neutrophils 5.3 Absolute Lymphocytes 1.7 Absolute Monocytes 0.6 Absolute Eosinophils 0.5 Absolute Basophils 0.1 Sodium 143.5 Potassium 4.0 Chloride 105 Carbon Dioxide 27 Anion Gap 12 BUN 20 Creatinine 0.92 Est GFR ( Amer) > 60 Est GFR (Non-Af Amer) > 60 Glucose 117 H Calcium 9.5 Magnesium 2.0 Ammonia < 8.7 L 10/28/17 10/28/17 00:54 07:08 Troponin I 0.022 0.017 Impressions: Head CT 10/29/17 00:00 IMPRESSION: CHRONIC CHANGES OF ATROPHY AND MICROVASCULAR ISCHEMIA. OLD LACUNAR INFARCTS. NO ACUTE PROCESS. EVIDENCE OF ACUTE STROKE: NO. Assessment & Plan - Diagnosis (1) Acute right arterial ischemic stroke, MCA (middle cerebral artery) Is this a current diagnosis for this admission?: Yes Plan: Affecting right thalamus causing ataxia. Seems worse today. Continue PT and OT. Started anticoagulation with Eliquis, no evidence of bleeding complication on repeat CT scan this morning and 4 at the bedside. (2) Accelerated hypertension Is this a current diagnosis for this admission?: Yes Plan: Likely contribute factor to her stroke. Improved somewhat labile. Continue beta-bennett and titrate to effect. (3) New onset atrial fibrillation Is this a current diagnosis for this admission?: Yes Plan: Rate controlled with beta-bennett. started anticoagulation due to a chads 2 score of 2. Risks and benefits of anticoagulation were discussed with patient at bedside, she expressed no questions and willingness to accept the bleeding risk associated with this medication in an effort to avoid debilitating stroke. I suggested the need for further ischemic stratification with stress testing however she is not willing to perform at this time. Will refer to cardiology at discharge for outpatient evaluation. She is not showing any clinical signs or symptoms of ischemic heart disease. 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 (5) Obesity (BMI 30.0-34.9) Is this a current diagnosis for this admission?: Yes - Time Time Spent with patient: 25-34 minutes - Plan Summary Plan Summary: Unable to discharge home at this time due to episodic confusion and worsening ataxia. Continue physical therapy. Continue to monitor respiratory status.
[2017-10-29] MEDS ORDERED: LISINOPRIL 5 MG TABLET PO ONE (17:00)
[2017-10-29 19:26] LABS: APPEARANCE,URINE SLIGHTLY-CLOUDY; BILIRUBIN,URINE NEGATIVE (NEGATIVE); COLOR,URINE YELLOW; GLUCOSE, URINE NEGATIVE (NEGATIVE); KETONES,URINE NEGATIVE (NEGATIVE); LEUKOCYTE ESTERASE,URINE LARGE (NEGATIVE); NITRITE,URINE NEGATIVE (NEGATIVE); PROTEIN,URINE NEGATIVE (NEGATIVE); URINE SPECIFIC GRAVITY 1.023
[2017-10-29] MEDS: ATORVASTATIN CALCIUM 80 MG TABLET PO SCH (23:17)
[2017-10-30] MEDS: LISINOPRIL 5 MG TABLET PO SCH (09:07)
[2017-10-30] MEDS: APIXABAN 5 MG TABLET PO SCH ×2 (09:07→17:08)
[2017-10-30] MEDS: METOPROLOL TARTRATE 25 MG TABLET PO SCH ×2 (09:45→17:08)
--- NOTE | 2017-10-30 13:39 | PDOC PROGRESS REPORT ---
Subjective Progress Note for:: 10/30/17 Subjective:: History of Present Illness: BLANCA GIL is a 76 year old female presents from home with a couple week history of progressive dizziness resulting in several falls over the course of the last 3 days. Patient has always refused to come in for evaluation after a fall in spite until today at the insistence of her family. She has a history of hypertension but quit going to the doctor approximately 15 years ago and took herself off all medications at that time. She reports the dizziness occurring off and on for the last couple of weeks but does seem to be getting worse over the last several days. Is not associated with any behaviors or activities and the she cannot think of any alleviating or exacerbating factors, it seems rather random sometimes occurring upon standing and other times while walking. She denies unilateral weakness, numbness or tingling, headache, vision changes, hearing changes, speech difficulties or swallowing problems, cough with congestion, stiff neck, fever or chills. She has never had anything like this before. On arrival in the emergency department she was noted to be quite hypertensive with a systolic pressure greater than 235 and diastolic pressure greater than 115 in an irregular rhythm consistent with atrial fibrillation and a heart rate from 100-116 sustained with no prior history of cardiac arrhythmia. MRI was performed and shows deep brain lesion consistent with acute ischemic event and we were asked to admit for further evaluation and management. She initially showed improvement in her symptoms though she still gets a little unsteady on her feet with ambulation she is working with physical therapy who notes a slight list to the left when walking with a walker she is otherwise min assist. Workup so far has been unrevealing, laboratory workup is all within normal limits including a B12, electrolytes, thyroid studies. Her cholesterol is not well controlled with a total cholesterol of 211 and an LDL of 121. She did have measurable troponins reaching a peak of 0.022 likely secondary to the stroke itself she is chest pain-free. Echocardiogram per Dr. Cote shows well-preserved EF greater than 65% with normal diastolic function, no thrombus, no ASD/VSD evident, no valvular disease. Carotid Dopplers are also clean including the antegrade flow through the vertebral arteries. She had a very difficult night with development of confusion, she reportedly would not stay in bed and stripped all of her clothes off was walking around in the room naked and could not be redirected. He was very disoriented and agitated and restless. Ultimately they were able to get her back into bed and she did finally fall asleep. Wednesday morning she has no recollection of those event and was more confused than before she had no recollection of the events that brought her to the hospital. By Wednesday she was closer to her baseline but I again note a pretty heavy list to the left when sitting or walking and by the time she returns to the bed from a short walk with staff she is very dizzy. I am not convinced she can safely transition home yet, especially since we just started eliquis and she had multiple falls at home before coming in. She denies chest pain, palpitations, fever, chills, cough, dyspnea, headache, numbness tingling, difficulty speaking, difficulty swallowing unilateral weakness. ROS: All systems reviewed, see above, remaining systems negative. Reason For Visit: CVA Physical Exam Vital Signs: Temp Pulse Resp BP Pulse Ox 98.1 F 76 20 151/71 H 97 10/30/17 12:17 10/30/17 12:17 10/30/17 12:17 10/30/17 12:17 10/30/17 12:17 Intake & Output 10/29/17 10/30/17 10/31/17 06:59 06:59 06:59 Intake Total 902 230 Output Total 0 200 Balance 902 30 Weight 69.1 kg 68.4 kg General: Well-developed, well-nourished, mildly obese elderly female in no acute distress alert and oriented to person place but not time or situation. HEENT: Extraocular muscles intact, pupils equal round reactive to light and accommodation, oral mucosa moist and free of lesions, neck muscles are supple there is no adenopathy about the head and neck. No nystagmus Cardiac: Irregularly irregular with sustained rate less than 100 and no obvious murmur rub or gallop; no JVD, no carotid bruit. Respiratory: Clear to auscultation bilaterally without accessory muscle use. Abdomen: Soft, nontender, nondistended with good bowel sounds throughout; no organomegaly and no abdominal bruit. Extremities: Strength is 5 out of 5 in the major muscle groups. She moves all 4 extremities and follows commands. No edema. Neuro: there is no dysarthria; tongue protrusion is midline, no facial asymmetry. Sensation intact globally. No focal weakness on confrontational testing. She definitely lists to the left even while sitting she can barely hold herself upright but she denies dizziness Psych: affect very flat as is her mood. she is calm and cooperative Skin: Warm and dry. Results Laboratory Results: 10/29/17 09:43 10/29/17 09:43 10/29/17 18:30 Urine Color YELLOW Urine Appearance SLIGHTLY-CLOUDY Urine pH 5.0 Ur Specific [place] 1.023 Urine Protein NEGATIVE Urine Glucose (UA) NEGATIVE Urine Ketones NEGATIVE Urine Blood SMALL H Urine Nitrite NEGATIVE Ur Leukocyte Esterase LARGE H Urine WBC (Auto) 36 Urine RBC (Auto) 2 10/28/17 10/28/17 00:54 07:08 Troponin I 0.022 0.017 Assessment & Plan - Diagnosis (1) Acute right arterial ischemic stroke, MCA (middle cerebral artery) Is this a current diagnosis for this admission?: Yes Plan: Affecting right thalamus causing ataxia. Minimally improved today. Continue PT and OT. Started anticoagulation with Eliquis, no evidence of bleeding complication on repeat CT scan this morning and 4 at the bedside. (2) Accelerated hypertension Is this a current diagnosis for this admission?: Yes Plan: Likely contribute factor to her stroke. Improved somewhat but labile. Continue beta-bennett and titrate to effect. (3) New onset atrial fibrillation Is this a current diagnosis for this admission?: Yes Plan: Rate controlled with beta-bennett. started anticoagulation due to a chads 2 score of 2. Risks and benefits of anticoagulation were discussed with patient at bedside, she expressed no questions and willingness to accept the bleeding risk associated with this medication in an effort to avoid debilitating stroke. I suggested the need for further ischemic stratification with stress testing however she is not willing to perform at this time. Will refer to cardiology at discharge for outpatient evaluation. She is not showing any clinical signs or symptoms of ischemic heart disease. (4) Noncompliance Is this a current diagnosis for this admission?: Yes (5) Obesity (BMI 30.0-34.9) Is this a current diagnosis for this admission?: Yes - Time Time Spent with patient: 25-34 minutes Anticipated discharge: Home Within: within 24 hours
[2017-10-30] MEDS: ATORVASTATIN CALCIUM 80 MG TABLET PO SCH (21:06)
[2017-10-31] MEDS: METOPROLOL TARTRATE 25 MG TABLET PO SCH ×2 (05:07→18:03)
[2017-10-31] MEDS: APIXABAN 5 MG TABLET PO SCH ×2 (09:42→18:03)
[2017-10-31] MEDS: LISINOPRIL 5 MG TABLET PO SCH (09:42)
--- NOTE | 2017-10-31 17:35 | PDOC PROGRESS REPORT ---
Subjective Progress Note for:: 10/31/17 Reason For Visit: 76-year-old female who presented to the hospital with gait instability and was diagnosed with 2 small strokes in the area of the right thalamus. She also has atrial fibrillation and was started on anticoagulation. She is currently awaiting physical therapy evaluation to decide safe disposition. No complaints at present. Physical Exam Vital Signs: Temp Pulse Resp BP Pulse Ox 98.2 F 87 16 166/69 H 95 10/31/17 15:27 10/31/17 15:27 10/31/17 15:27 10/31/17 15:27 10/31/17 15:27 Intake & Output 10/30/17 10/31/17 11/01/17 06:59 06:59 06:59 Intake Total 230 932 150 Output Total 200 500 Balance 30 432 150 Weight 68.4 kg 67.3 kg General appearance: PRESENT: no acute distress Head exam: PRESENT: atraumatic, normocephalic Eye exam: PRESENT: conjunctiva pink. ABSENT: scleral icterus Mouth exam: PRESENT: moist, tongue midline Throat exam: ABSENT: tonsillar exudate Neck exam: ABSENT: carotid bruit, JVD, tenderness, tracheal deviation Respiratory exam: PRESENT: clear to auscultation ciera, unlabored. ABSENT: accessory muscle use Cardiovascular exam: PRESENT: irregular rhythm GI/Abdominal exam: PRESENT: normal bowel sounds, soft. ABSENT: tenderness Rectal exam: PRESENT: deferred Neurological exam: PRESENT: alert, awake, oriented to person, oriented to place , oriented to time. ABSENT: aphasic Psychiatric exam: PRESENT: appropriate affect Skin exam: PRESENT: dry, intact. ABSENT: rash Results Laboratory Results: 10/29/17 09:43 10/29/17 09:43 10/28/17 10/28/17 00:54 07:08 Troponin I 0.022 0.017 Impressions: Chest X-Ray 10/27/17 16:30 IMPRESSION: NO ACUTE RADIOGRAPHIC FINDING IN THE CHEST. Head MRI 10/27/17 17:33 IMPRESSION: 2 small foci of restricted diffusion in the white matter in the region of the right thalamus suspicious for sub-acute lacunar infarctions. EVIDENCE OF ACUTE STROKE: Yes RIGHT MCA Carotid Doppler Study 10/28/17 00:00 IMPRESSION: NO HEMODYNAMICALLY SIGNIFICANT STENOSIS. Head CT 10/29/17 00:00 IMPRESSION: CHRONIC CHANGES OF ATROPHY AND MICROVASCULAR ISCHEMIA. OLD LACUNAR INFARCTS. NO ACUTE PROCESS. EVIDENCE OF ACUTE STROKE: NO. Assessment & Plan - Diagnosis (1) Accelerated hypertension Is this a current diagnosis for this admission?: Yes (2) CVA (cerebral vascular accident) Qualifiers: CVA mechanism: unspecified Qualified Code(s): I63.9 - Cerebral infarction, unspecified (3) New onset atrial fibrillation Is this a current diagnosis for this admission?: Yes - Time Time Spent with patient: 25-34 minutes - Plan Summary Plan Summary: Acute stroke and atrial fibrillation. On anticoagulation. Continue current management. Awaiting physical therapy evaluation for safe disposition.
[2017-10-31] MEDS: ATORVASTATIN CALCIUM 80 MG TABLET PO SCH (21:19)
[2017-11-01] MEDS: METOPROLOL TARTRATE 25 MG TABLET PO SCH ×2 (05:17→19:09)
[2017-11-01] MEDS: APIXABAN 5 MG TABLET PO SCH ×2 (09:01→19:08)
[2017-11-01] MEDS: LISINOPRIL 5 MG TABLET PO SCH (09:01)
--- NOTE | 2017-11-01 12:35 | PDOC PROGRESS REPORT ---
Subjective Progress Note for:: 11/01/17 Subjective:: 76-year-old female presented to the hospital with gait instability and was diagnosed with 2 small strokes in the right thalamus and also was found to be in atrial fibrillation and was started on anticoagulation. She remains unsteady on her feet and will benefit from subacute rehabilitation. Physical therapy evaluation is pending. No complaints at present. Her son is at the bedside and plan of care was discussed. Reason For Visit: CVA Physical Exam Vital Signs: Temp Pulse Resp BP Pulse Ox 97.9 F 74 20 158/59 H 95 11/01/17 07:51 11/01/17 07:51 11/01/17 07:51 11/01/17 07:51 11/01/17 07:51 Intake & Output 10/31/17 11/01/17 11/02/17 06:59 06:59 06:59 Intake Total 932 785 Output Total 500 300 Balance 432 485 Weight 67.3 kg 66.4 kg Additional comments: Frail elderly female lying comfortably in bed not in acute distress HEENT: Pupils reactive to light moist pink oropharynx and mucosa normal conjunctiva with no lesions no icterus Lungs: Clear to auscultation bilaterally normal respiratory effort Cardiac: S1-S2 irregular, no murmurs heard no peripheral edema no cyanosis no calf tenderness Abdomen: Soft, normal bowel sounds, no focal tenderness Neurologic: Awake and alert oriented 3 No facial droop No cerebellar signs no tremor Results Laboratory Results: 10/29/17 09:43 10/29/17 09:43 10/28/17 10/28/17 00:54 07:08 Troponin I 0.022 0.017 Impressions: Chest X-Ray 10/27/17 16:30 IMPRESSION: NO ACUTE RADIOGRAPHIC FINDING IN THE CHEST. Head MRI 10/27/17 17:33 IMPRESSION: 2 small foci of restricted diffusion in the white matter in the region of the right thalamus suspicious for sub-acute lacunar infarctions. EVIDENCE OF ACUTE STROKE: Yes RIGHT MCA Carotid Doppler Study 10/28/17 00:00 IMPRESSION: NO HEMODYNAMICALLY SIGNIFICANT STENOSIS. Head CT 10/29/17 00:00 IMPRESSION: CHRONIC CHANGES OF ATROPHY AND MICROVASCULAR ISCHEMIA. OLD LACUNAR INFARCTS. NO ACUTE PROCESS. EVIDENCE OF ACUTE STROKE: NO. Assessment & Plan - Diagnosis (1) Accelerated hypertension Is this a current diagnosis for this admission?: Yes Plan: Much improved. Continue current management. (2) CVA (cerebral vascular accident) Qualifiers: CVA mechanism: unspecified Qualified Code(s): I63.9 - Cerebral infarction, unspecified (3) New onset atrial fibrillation Is this a current diagnosis for this admission?: Yes - Time Time Spent with patient: 25-34 minutes - Plan Summary Plan Summary: Cont Metoprolol, Lisinopril, Eliquis, Statin. Fall precautions. PT eval.
[2017-11-01] MEDS: ATORVASTATIN CALCIUM 80 MG TABLET PO SCH (21:15)
[2017-11-02] MEDS: METOPROLOL TARTRATE 25 MG TABLET PO SCH ×2 (06:09→17:56)
[2017-11-02] MEDS: LISINOPRIL 5 MG TABLET PO SCH (10:10)
[2017-11-02] MEDS: APIXABAN 5 MG TABLET PO SCH ×2 (10:10→17:56)
--- NOTE | 2017-11-02 10:50 | PDOC PROGRESS REPORT ---
Subjective Progress Note for:: 11/02/17 Subjective:: 76-year-old female presented to the hospital with gait instability and was diagnosed with 2 small strokes in the right thalamus and also was found to be in atrial fibrillation and was started on anticoagulation. She remains unsteady on her feet and will benefit from subacute rehabilitation. Was evaluated by physical therapy on November 01 and they recommended subacute rehabilitation given that she still has significant ataxia and is at risk for falls. Reason For Visit: CVA Physical Exam Vital Signs: Temp Pulse Resp BP Pulse Ox 97.7 F 65 18 126/56 H 95 11/02/17 08:11 11/02/17 08:11 11/02/17 08:11 11/02/17 08:11 11/02/17 08:11 Intake & Output 11/01/17 11/02/17 11/03/17 06:59 06:59 06:59 Intake Total 785 1200 Output Total 300 0 Balance 485 1200 Weight 66.4 kg 68.2 kg Additional comments: Frail elderly female lying comfortably in bed HEENT: Pupils reactive to light moist pink oropharynx and mucosa, no icterus Lungs: Clear to auscultation bilaterally normal respiratory effort Cardiac: S1-S2 irregular, no murmurs heard no peripheral edema no cyanosis no calf tenderness Abdomen: Soft, normal bowel sounds, no focal tenderness Neurologic: Awake and alert oriented 3 motor strength 5 out of 5 bilateral upper and lower extremities. Sensation intact and equal bilaterally. No facial droop No cerebellar signs no tremor Results Laboratory Results: 10/29/17 09:43 10/29/17 09:43 10/28/17 10/28/17 00:54 07:08 Troponin I 0.022 0.017 Impressions: Chest X-Ray 10/27/17 16:30 IMPRESSION: NO ACUTE RADIOGRAPHIC FINDING IN THE CHEST. Head MRI 10/27/17 17:33 IMPRESSION: 2 small foci of restricted diffusion in the white matter in the region of the right thalamus suspicious for sub-acute lacunar infarctions. EVIDENCE OF ACUTE STROKE: Yes RIGHT MCA Carotid Doppler Study 10/28/17 00:00 IMPRESSION: NO HEMODYNAMICALLY SIGNIFICANT STENOSIS. Head CT 10/29/17 00:00 IMPRESSION: CHRONIC CHANGES OF ATROPHY AND MICROVASCULAR ISCHEMIA. OLD LACUNAR INFARCTS. NO ACUTE PROCESS. EVIDENCE OF ACUTE STROKE: NO. Assessment & Plan - Diagnosis (1) Accelerated hypertension Is this a current diagnosis for this admission?: Yes Plan: Much improved. Continue Toprol and lisinopril. (2) CVA (cerebral vascular accident) Qualifiers: CVA mechanism: unspecified Qualified Code(s): I63.9 - Cerebral infarction, unspecified Is this a current diagnosis for this admission?: Yes Plan: Continue statin and Eliquis. (3) New onset atrial fibrillation Is this a current diagnosis for this admission?: Yes Plan: Continue metoprolol and Eliquis. - Time Time Spent with patient: 15-24 minutes - Plan Summary Plan Summary: Awaiting discharge to rehab.
[2017-11-02] MEDS: ATORVASTATIN CALCIUM 80 MG TABLET PO SCH (22:11)
[2017-11-03] MEDS: METOPROLOL TARTRATE 25 MG TABLET PO SCH (05:16)
[2017-11-03 05:57] LABS: HEMATOCRIT 39.9 % (36.0-47.0); HEMOGLOBIN 13.5 g/dL (12.0-15.5); MEAN CORPUSCULAR HEMOGLOBIN 30.2 pg (27.0-33.4); MEAN CORPUSCULAR HGB CONC 33.9 g/dL (32.0-36.0); MEAN CORPUSCULAR VOLUME 89 fl (80-97); PLATELET COUNT 351 10^3/uL (150-450); RED BLOOD COUNT 4.47 10^6/uL (3.72-5.28); RED CELL DISTRIBUTION WIDTH 13.4 % (11.5-14.0); WHITE BLOOD COUNT 9.7 10^3/uL (4.0-10.5)
[2017-11-03 06:23] LABS: ALANINE AMINOTRANSFERASE 37 U/L (9-52); ALBUMIN 3.4 g/dL (3.5-5.0); ALKALINE PHOSPHATASE 89 U/L (38-126); ANION GAP 10 (5-19); ASPARTATE AMINO TRANSFERASE 22 U/L (14-36); BILIRUBIN,DIRECT 0.2 mg/dL (0.0-0.4); BILIRUBIN,TOTAL 0.5 mg/dL (0.2-1.3); BLOOD UREA NITROGEN 28 mg/dL (7-20); CALCIUM 9.8 mg/dL (8.4-10.2); CARBON DIOXIDE 24 mmol/L (22-30); CHLORIDE 108 mmol/L (98-107); GLUCOSE 103 mg/dL (75-110); MAGNESIUM 1.9 mg/dL (1.6-2.3); PHOSPHORUS 4.4 mg/dL (2.5-4.5); SODIUM 141.9 mmol/L (137-145); TOTAL PROTEIN 6.1 g/dL (6.3-8.2)
[2017-11-03 09:04] VITALS: BP 136/78
[2017-11-03] MEDS: APIXABAN 5 MG TABLET PO SCH (09:21)
[2017-11-03] MEDS: LISINOPRIL 5 MG TABLET PO SCH (09:22)
--- NOTE | 2017-11-03 09:39 | PDOC TRANSFER SUMMARY ---
General - Admit/Disc Date/PCP Admission Date/Primary Care Provider: 10/27/17 18:50 Discharge Date: 11/03/17 - Discharge Diagnosis (1) Accelerated hypertension Is this a current diagnosis for this admission?: Yes (2) Acute right arterial ischemic stroke, MCA (middle cerebral artery) Is this a current diagnosis for this admission?: Yes (3) New onset atrial fibrillation Is this a current diagnosis for this admission?: Yes - Additional Information Resuscitation Status: Full Code Discharge Diet: Cardiac Discharge Activity: Activity As Tolerated, Balance Activity w/Rest, Slowly Increase Activity Prescriptions: Apixaban [Eliquis 5 mg Tablet] 5 mg PO BID #60 tablet Atorvastatin Calcium [Lipitor 80 mg Tablet] 80 mg PO QHS #30 tablet Lisinopril [Prinivil 5 mg Tablet] 5 mg PO DAILY #30 tablet Metoprolol Tartrate [Lopressor 25 mg Tablet] 25 mg PO Q12A #60 tablet Home Medications: Acetaminophen [Tylenol 325 mg Tablet] 650 mg PO Q4HP PRN tablet 11/03/17 Apixaban [Eliquis 5 mg Tablet] 5 mg PO BID #60 tablet 11/03/17 Aspirin [Ecotrin 81 mg EC Tablet] 81 mg PO DAILY #1 pkg 11/03/17 Atorvastatin Calcium [Lipitor 80 mg Tablet] 80 mg PO QHS #30 tablet 11/03/17 Lisinopril [Prinivil 5 mg Tablet] 5 mg PO DAILY #30 tablet 11/03/17 Metoprolol Tartrate [Lopressor 25 mg Tablet] 25 mg PO Q12A #60 tablet 11/03/17 History of Present Illness Admission Date/PCP: 10/27/17 18:50 History of Present Illness: BLANCA GIL is a 76 year old female presents from home with a couple week history of progressive dizziness resulting in several falls over the course of the last 3 days. Patient has always refused to come in for evaluation after a fall in spite until today at the insistence of her family. She has a history of hypertension but quit going to the doctor approximately 15 years ago and took herself off all medications at that time. She reports the dizziness occurring off and on for the last couple of weeks but does seem to be getting worse over the last several days. Is not associated with any behaviors or activities and the she cannot think of any alleviating or exacerbating factors, it seems rather random sometimes occurring upon standing and other times while walking. She denies unilateral weakness, numbness or tingling, headache, vision changes, hearing changes, speech difficulties or swallowing problems, cough with congestion, stiff neck, fever or chills. She has never had anything like this before. On arrival in the emergency department she was noted to be quite hypertensive with a systolic pressure greater than 235 and diastolic pressure greater than 115 in an irregular rhythm consistent with atrial fibrillation and a heart rate from 100-116 sustained with no prior history of cardiac arrhythmia. MRI was performed and shows deep brain lesion consistent with acute ischemic event and we were asked to admit for further evaluation and management. Hospital Course Hospital Course: The patient was admitted with complaint of poor balance and multiple falls. Evaluation revealed new onset atrial fibrillation, hypertensive urgency, and subacute lacunar infarctions on head MRI. Carotid Doppler did not show any hemodynamically significant stenosis. Echocardiogram demonstrated LVEF >65%. The patient's blood pressures was managed with initiation of lisinopril and metoprolol. She remains rate controlled in atrial fibrillation and so was placed on Eliquis. The patient continues to remain unsteady on her feet and will benefit from subacute rehabilitation. On day of discharge, the patient is stable, and looking forward to starting physical therapy at [place]. She is discharged with prescriptions for lisinopril, metoprolol, Eliquis, and atorvastatin. Physical Exam Vital Signs: Temp Pulse Resp BP Pulse Ox 98.4 F 75 18 136/78 H 96 11/03/17 08:22 11/03/17 08:22 11/03/17 08:22 11/03/17 08:22 11/03/17 08:22 Intake & Output 11/02/17 11/03/17 11/04/17 06:59 06:59 06:59 Intake Total 1200 954 Output Total 0 1 Balance 1200 953 Weight 68.2 kg 66.4 kg General appearance: PRESENT: no acute distress, well-developed, well-nourished, other - Frail Head exam: PRESENT: atraumatic, normocephalic Eye exam: PRESENT: conjunctiva pink, EOMI, PERRLA. ABSENT: scleral icterus Ear exam: PRESENT: normal external ear exam Mouth exam: PRESENT: moist, tongue midline Neck exam: ABSENT: carotid bruit, JVD, lymphadenopathy, thyromegaly Respiratory exam: PRESENT: clear to auscultation ciera. ABSENT: rales, rhonchi, wheezes Cardiovascular exam: PRESENT: irregular rhythm, +S1, +S2. ABSENT: diastolic murmur, rubs, systolic murmur Pulses: PRESENT: normal dorsalis pedis pul Vascular exam: PRESENT: normal capillary refill GI/Abdominal exam: PRESENT: normal bowel sounds, soft. ABSENT: distended, guarding, mass, organolmegaly, rebound, tenderness Rectal exam: PRESENT: deferred Extremities exam: PRESENT: full ROM. ABSENT: calf tenderness, clubbing, pedal edema Neurological exam: PRESENT: alert, awake, oriented to person, oriented to place , oriented to time, oriented to situation, CN II-XII grossly intact. ABSENT: motor sensory deficit Psychiatric exam: PRESENT: appropriate affect, normal mood. ABSENT: homicidal ideation, suicidal ideation Skin exam: PRESENT: dry, intact, warm. ABSENT: cyanosis, rash Results Laboratory Results: 11/03/17 05:28 11/03/17 05:28 11/03/17 11/03/17 05:28 05:28 WBC 9.7 RBC 4.47 Hgb 13.5 Hct 39.9 MCV 89 MCH 30.2 MCHC 33.9 RDW 13.4 Plt Count 351 Sodium 141.9 Potassium 4.0 Chloride 108 H Carbon Dioxide 24 Anion Gap 10 BUN 28 H Creatinine 1.09 Est GFR ( Amer) 59 L Est GFR (Non-Af Amer) 49 L Glucose 103 Calcium 9.8 Phosphorus 4.4 Magnesium 1.9 Total Bilirubin 0.5 AST 22 ALT 37 Alkaline Phosphatase 89 Total Protein 6.1 L Albumin 3.4 L 10/28/17 10/28/17 00:54 07:08 Troponin I 0.022 0.017 Impressions: Chest X-Ray 10/27/17 16:30 IMPRESSION: NO ACUTE RADIOGRAPHIC FINDING IN THE CHEST. Head MRI 10/27/17 17:33 IMPRESSION: 2 small foci of restricted diffusion in the white matter in the region of the right thalamus suspicious for sub-acute lacunar infarctions. EVIDENCE OF ACUTE STROKE: Yes RIGHT MCA Carotid Doppler Study 10/28/17 00:00 IMPRESSION: NO HEMODYNAMICALLY SIGNIFICANT STENOSIS. Head CT 10/29/17 00:00 IMPRESSION: CHRONIC CHANGES OF ATROPHY AND MICROVASCULAR ISCHEMIA. OLD LACUNAR INFARCTS. NO ACUTE PROCESS. EVIDENCE OF ACUTE STROKE: NO. Transfer Plan - Disposition Transfer Plan: Discharge to [place] for short-term rehab - Time Spent with Patient Time spent with patient: Less than 30 Minutes Qualifiers PATEINT BEING DISCHARGED WITH ANY OF THE FOLLOWING DIAGNOSIS?: Stroke Stroke Pt being discharged on Anti-thrombolytic therapy?: Yes Stroke Pt being discharged on Anti-coagulation therapy?: Yes Stroke Pt being discharged on Statins?: Yes
== END 2017-11-03 16:15 | DRG 66 ==
LOC: ER 15:52 → EH 18:50 → 3S 21:17
PROVIDERS: ADMIT Internal Medicine; ATTEND Internal Medicine
DX: I63.9 Cerebral infarction, unspecified (principal); I48.91 Unspecified atrial fibrillation; I16.0 Hypertensive urgency; R27.0 Ataxia, unspecified; R53.1 Weakness; I10 Essential (primary) hypertension; E78.5 Hyperlipidemia, unspecified; Z90.710 Acquired absence of both cervix and uterus; F17.210 Nicotine dependence, cigarettes, uncomplicated; E66.9 Obesity, unspecified; Z91.81 History of falling; Z91.19 Patient's noncompliance with other medical treatment and regimen; Z79.899 Other long term (current) drug therapy; Z79.02 Long term (current) use of antithrombotics/antiplatelets; Z68.30 Body mass index [BMI] 30.0-30.9, adult
CPT/HCPCS: 36415; 70450; 70551; 71010; 80048; 80053; 80061; 81001; 82140; 82550; 82607; 83036; 83735; 84100; 84439; 84443; 84484; 85025; 85027; 85610; 85730; 93005; 93010; 93306; 93880; 99285; G8978-GP; G8979-GP; G8987-GO; G8988-GO; G9162-GN; G9163-GN; G9164-GN; J1650; J3490